=== PATIENT | female | born 1950 | race Two or more races ===

== ENCOUNTER 2019-05-17 15:50 | Emergency (ER) | payer OTHER ==
[~2019-05-17] VITALS: Ht 154.9 cm; Wt 56.7 kg
[~2019-05-17 15:50] MED LIST: LIPITOR20 MG; SYNTHROID100 MCG; TESSALON PERLE100 MG PO; TUSSI PRES-B L120 M1 PO; ZITHROMAX TRI-500 MG PO
[2019-05-17] MEDS ORDERED: ALPRAZOLAM ODT1 MG (16:09)
[2019-05-17] MEDS ORDERED: PRILOSEC10 MG (16:10)
[2019-05-17] MEDS ORDERED: SYNTHROID88 MCG (16:10)
[2019-05-17] MEDS ORDERED: CRESTOR10 MG (16:11)
== END 2019-05-17 21:08 | disposition home or self-care (01) ==
LOC: ER 15:50
DX: K58.8 Other irritable bowel syndrome (principal)

== ENCOUNTER 2022-05-23 14:27 | Emergency (ER) | payer OTHER ==
[~2022-05-23] VITALS: Ht 152.4 cm; Wt 61.2 kg
[~2022-05-23 14:27] MED LIST changes: +ALPRAZOLAM ODT1 MG; +CRESTOR10 MG; +PRILOSEC10 MG; +SYNTHROID88 MCG
[2022-05-23] MEDS ORDERED: CRESTOR20 MG PO (14:54)
[2022-05-23] MEDS ORDERED: NORVASC5 MG PO (14:55)
[2022-05-23] MEDS ORDERED: LATANOPROST 0.7.5 ML OP (14:58)
[2022-05-23] MEDS ORDERED: AKTOB5 ML OP (14:58)
[2022-05-23] MEDS ORDERED: NEURONTIN300 MG PO (14:59)
[2022-05-23] MEDS ORDERED: XANAX XR0.5 MG PO (14:59)
[2022-05-23] MEDS ORDERED: [UNRECOGNIZED DRUG - OTHER] (15:00)
[2022-05-23] MEDS ORDERED: METAXALONE400 MG PO (15:01)
[2022-05-23] MEDS ORDERED: MEDROLPACK PO (18:18)
[2022-05-23] MEDS ORDERED: ZITHROMAX500 MG PO (18:18)
[2022-05-23] MEDS ORDERED: TUSNEL LIQUID178 ML PO (18:18)
[2022-05-23] MEDS ORDERED: XOPENEX0.63 MG/3 IH (18:18)
== END 2022-05-23 18:27 | disposition home or self-care (01) ==
LOC: ER 14:27
DX: J45.901 Unspecified asthma with (acute) exacerbation (principal); Z88.0 Allergy status to penicillin; Z88.6 Allergy status to analgesic agent; Z88.2 Allergy status to sulfonamides; Z91.018 Allergy to other foods; E78.00 Pure hypercholesterolemia, unspecified; I10 Essential (primary) hypertension; J22 Unspecified acute lower respiratory infection; Z20.822 Contact with and (suspected) exposure to COVID-19

== ENCOUNTER 2025-06-18 13:48 | Emergency (ER) | payer OTHER ==
[~2025-06-18] VITALS: Ht 149.9 cm; Wt 58.5 kg
[~2025-06-18 13:48] MED LIST changes: +AKTOB5 ML OP; +CRESTOR20 MG PO; +LATANOPROST 0.7.5 ML OP; +MEDROLPACK PO; +METAXALONE400 MG PO; +NEURONTIN300 MG PO; +NORVASC5 MG PO; +TUSNEL LIQUID178 ML PO; +XANAX XR0.5 MG PO; +XOPENEX0.63 MG/3 IH; +ZITHROMAX500 MG PO; +[UNRECOGNIZED DRUG - OTHER]
[2025-06-18] MEDS ORDERED: ONDANSETRON HCL 2 MG/ML VIAL IV ONE (15:30)
[2025-06-18] MEDS ORDERED: 0.9 % SODIUM CHLORIDE 500 ML IV ONE (15:30)
[2025-06-18] MEDS ORDERED: FAMOTIDINE/PF 20 MG/2 ML VIAL IV ONE (15:30)
[2025-06-18] MEDS ORDERED: FAMOTIDINE/PF 20 MG/2 ML VIAL ONE (15:39)
[2025-06-18] MEDS ORDERED: ONDANSETRON HCL 2 MG/ML VIAL ONE (15:39)
[2025-06-18 16:10] LABS: BASO % 1.5 % (0.1-1.2); EOS # 0.26 (0.04-0.54); EOS % 4.4 % (0.7-7.0); LYMPH # 1.47 (1.18-3.74); LYMPH % 24.9 % (19.3-53.1); MEAN PLATELET VOLUME 9.80 fl (9.4-12.4); MONO # 0.46 (0.24-0.82); MONO % 7.8 % (4.7-12.5); NEUT # 3.61 (1.56-6.13); NEUT % 61.2 % (34.0-71.1); RED CELL DISTRIBUTION WIDTH 13.5 % (11.6-14.4)
[2025-06-18 17:02] LABS: ALT/SGPT 42.0 U/L (12-78); AST/SGOT 32.0 U/L (15-37); BILIRUBIN TOTAL 0.38 mg/dL (0.3-1.2); BUN CREA RATIO 13.0 (7.0-25.0); CREATININE SERUM 0.77 mg/dL (0.55-1.02); GFR 73.08; GLOBULINA 3.9 G/DL (2.4-3.5); GLUCOSE FASTING 76.0 mg/dL (65-100); OSMOLALITY SERUM 283.0 MOSM/KG (275-295)
[2025-06-18 17:17] LABS: URINE APPEARANCE Clear; URINE BILIRRUBIN Negative (NEGATIVE); URINE BLOOD Negative; URINE COLOR Yellow; URINE GLUCOSE Negative (NEGATIVE); URINE KETONE Negative (NEGATIVE); URINE LEUKOCYTE Trace; URINE NITRATE Negative; URINE PROTEIN Negative (NEGATIVE); URINE UROBILINOGEN 0.2 E.U./dl
[2025-06-18 17:22] LABS: URINE EPITHELIAL CELLS 9.6 uL (0.0-38.8); URINE RBC 14.6 uL (0.0-20.8); URINE WBC 17.2 uL (0.0-23.2)
[2025-06-18 17:28] LABS: TYPE CELLS SQUAMOUS; URINE BACTERIA 0 uL (0.0-1933); URINE CAST 0.14 uL (0.0-1.40)
== END 2025-06-18 21:47 | disposition home or self-care (01) ==
LOC: ER 13:48
PROVIDERS: General Practice
DX: R10.24 Suprapubic pain (principal); R10.31 Right lower quadrant pain; Z88.2 Allergy status to sulfonamides; Z88.0 Allergy status to penicillin; Z88.8 Allergy status to other drugs, medicaments and biological substances; K57.32 Diverticulitis of large intestine without perforation or abscess without bleeding; E78.49 Other hyperlipidemia; K44.9 Diaphragmatic hernia without obstruction or gangrene; H40.89 Other specified glaucoma; Q79.69 Other Ehlers-Danlos syndromes; M81.8 Other osteoporosis without current pathological fracture; Z98.890 Other specified postprocedural states; Z91.018 Allergy to other foods
CPT/HCPCS: 36415; 74177; 96365; 96366; 99284; J2405; J3490; J7042; Q9965